=== PATIENT | male | born 1980 | race Caucasian/White ===

== ENCOUNTER 2022-02-17 16:52 | Outpatient (REF) | payer MEDICAID, SELFPAY ==
[2022-02-17 20:39] LABS: ALT 46 U/L (16-63); AST 20 U/L (15-37); Albumin 4.4 g/dL (3.4-5.0); Alkaline Phosphatase 90 U/L (46-116); Anion Gap 9.2 mmol/L (3-11); BUN 19 mg/dL (7-18); Bilirubin, Total 1.7 mg/dL (0.2-1.0); CO2 28.8 mmol/L (21.0-32.0); CREATININE 1.1 mg/dL (0.70-1.30); Calcium 9.1 mg/dL (8.5-10.1); Calculated LDL 140 mg/dL (<100); Chloride 103 mmol/L (98-107); Cholesterol 236 mg/dL (<200); Glucose 115 mg/dL (74-106); HDL Cholesterol 41 mg/dL (40-60); Potassium 3.8 mmol/L (3.5-5.1); Sodium 141 mmol/L (136-145); Total Protein 7.3 g/dL (6.4-8.2); Triglyceride 279 mg/dL (<150)
[2022-02-19 09:47] LABS: HIV-1/2 Ag & Ab Screen Negative (Negative)
[2022-02-21 10:52] LABS: Hepatitis C Ab w Rflx HCV PCR Negative (Negative)
== END 2022-02-17 16:53 | disposition home or self-care (01) ==
LOC: NCHCN 16:52
PROVIDERS: Visit Provider Nurse Practitioner Family
DX: Z13.220 Encounter for screening for lipoid disorders (principal); Z11.4 Encounter for screening for human immunodeficiency virus [HIV]; Z13.228 Encounter for screening for other metabolic disorders; Z11.59 Encounter for screening for other viral diseases
CPT/HCPCS: 80053; 80061; 86803; 87389

== ENCOUNTER 2025-07-17 09:24 | Outpatient (REF) | payer BC, SELFPAY ==
[2025-07-17 16:14] LABS: ALT 58 U/L (16-63); AST 25 U/L (15-37); Albumin 4.2 g/dL (3.4-5.0); Alkaline Phosphatase 76 U/L (46-116); Anion Gap 8.6 mmol/L (3-11); BUN 19 mg/dL (7-18); Bilirubin, Total 1.9 mg/dL (0.2-1.0); CO2 28.4 mmol/L (21.0-32.0); Calcium 9.2 mg/dL (8.5-10.1); Calculated LDL 171 mg/dL (<100); Chloride 102 mmol/L (98-107); Cholesterol 253 mg/dL (<200); Estimated GFR 94.00 (mL/min/1.73m2); Glucose 106 mg/dL (74-106); HDL Cholesterol 43 mg/dL (>or=40); Potassium 4.1 mmol/L (3.5-5.1); Sodium 139 mmol/L (136-145); Total Protein 7.7 g/dL (6.4-8.2); Triglyceride 198 mg/dL (<150)
[2025-07-17 16:17] LABS: Hemoglobin A1C 5.4 % (<5.7)
[2025-07-18 09:34] LABS: PSA, Screening 0.5 ng/mL (<=2.5)
== END 2025-07-17 09:25 | disposition home or self-care (01) ==
LOC: NCHCN 09:24
PROVIDERS: Visit Provider Nurse Practitioner Family
DX: Z13.220 Encounter for screening for lipoid disorders (principal); Z13.1 Encounter for screening for diabetes mellitus; Z13.6 Encounter for screening for cardiovascular disorders; Z12.5 Encounter for screening for malignant neoplasm of prostate
CPT/HCPCS: 80053; 80061; 84153; 83036